=== PATIENT | female | born 1965 | race Caucasian/White ===

== ENCOUNTER → 2021-11-14 | Outpatient (CLI) | payer OTHER ==
--- NOTE | 2021-11-14 11:29 | XR ---
EXAMINATION TYPE: XR hand complete RT DATE OF EXAM: 11/14/2021 COMPARISON: None available INDICATION: 56-year-old female, history of carpal tunnel. Pain TECHNIQUE: Standard 3 views of the right hand FINDINGS: No definite acute fracture line identified. No significant bony or articular abnormality is seen. IMPRESSION: As above.
== END | disposition home or self-care (01) ==
LOC: RADXRMAIN 10:55
PROVIDERS: ATTEND Family Medicine
DX: M79.641 Pain in right hand (principal)